=== PATIENT | male | born 1995 | race Caucasian/White ===

== ENCOUNTER 2018-09-04 23:54 | Emergency (ER) | payer SELFPAY ==
[~2018-09-04] VITALS: Ht 167.6 cm; Wt 81.6 kg
[2018-09-05 00:10] VITALS: Ht 167.6 cm; Wt 81.6 kg
[2018-09-05 03:46] VITALS: BP 115/68
== END 2018-09-05 03:46 | disposition other institution (70) ==
LOC: ED 23:54
DX: S61.452A Open bite of left hand, initial encounter (principal); R07.89 Other chest pain; Y04.1XXA Assault by human bite, initial encounter; Y93.89 Activity, other specified; Y92.89 Other specified places as the place of occurrence of the external cause; Y99.8 Other external cause status
CPT/HCPCS: 90715

== ENCOUNTER 2018-09-04 23:54 | Emergency (ER) | payer OTHER | END 2018-09-05 04:45 | disposition other institution (70) | LOC: ED 23:54 | DX: Z02.89 Encounter for other administrative examinations (principal) ==